=== PATIENT | female | born 1960 | race Caucasian/White ===

== ENCOUNTER → 2019-05-29 | Outpatient (CLI) | payer OTHER ==
--- NOTE | 2019-05-29 15:44 | REPMRS ---
Patient History The patient states she had a clinical breast exam in 2019. No known family history of cancer. Digital Woman Screen Mammo: May 29, 2019 - Exam #: [id number] Bilateral CC and MLO view(s) were taken. Technologist: Lucy Pennington, Technologist Prior study comparison: March 04, 2015, digital woman screen mammo performed at [facility]. October 17, 2013, digital woman screen mammo performed at [facility]. September 11, 2012, digital woman screen mammo performed at [facility]. FINDINGS: There are scattered fibroglandular densities. There are stable nodular opacities in the left breast medially. There has been no change in the appearance of the mammogram from the prior studies. There is a mild amount of scattered fibroglandular density which is fairly symmetric. There is no interval development of dominant mass, architectural distortion, or grouped microcalcification suggestive of malignancy. 3-D tomosynthesis shows no additional findings. Assessment: BI-RADS/ACR category 2 mammogram. Benign Findings. Recommendation Routine screening mammogram of both breasts in 1 year (for women over age 40). This patient's Lifetime Breast Cancer Risk is estimated at 6.3 %. This mammogram was interpreted with the aid of an FDA-approved computer-aided dectection system. Electronically Signed By: Jordan Vale MD 05/29/19 [id number]
== END ==
LOC: M WHC 13:47
PROVIDERS: ATTEND Nurse Practitioner Women's Health
DX: Z12.31 Encounter for screening mammogram for malignant neoplasm of breast (principal)

== ENCOUNTER → 2020-06-18 | Outpatient (CLI) | payer OTHER ==
--- NOTE | 2020-06-18 11:25 | REPMRS ---
Patient History The patient states she had a clinical breast exam in June 2020. No known family history of cancer. Digital Woman Screen Mammo: June 18, 2020 - Exam #: [id number] Bilateral CC and MLO view(s) were taken. Technologist: Liz Meeks, Technologist Prior study comparison: May 29, 2019, bilateral digital woman screen mammo performed at [facility]. March 04, 2015, digital woman screen mammo performed at [facility]. October 17, 2013, digital woman screen mammo performed at [facility]. FINDINGS: There are scattered fibroglandular densities. The Volpara volumetric breast density category is:B. There is a 6 mm nodule in the upper outer quadrant of the right breast which merits further evaluation. There has been no other change in the appearance of the mammogram from the prior studies. There is a mild amount of scattered fibroglandular density which is fairly symmetric. There is no other interval development of dominant mass, architectural distortion, or grouped microcalcification suggestive of malignancy. 3-D tomosynthesis shows no additional findings. Assessment: BI-RADS/ACR category 0 mammogram, Incomplete: Need additional imaging evaluation and/or prior mammograms for comparison. Recommendation Ultrasound and special view mammogram of the right breast. This patient's [facility] Lifetime Breast Cancer Risk is estimated at 6.1 %. This mammogram was interpreted with the aid of an FDA-approved computer-aided dectection system. Electronically Signed By: Jordan Vale MD 06/18/20 [id number]
== END ==
LOC: M WHC 09:12
PROVIDERS: ATTEND Nurse Practitioner Women's Health
DX: Z12.31 Encounter for screening mammogram for malignant neoplasm of breast (principal); N63.11 Unspecified lump in the right breast, upper outer quadrant

== ENCOUNTER → 2020-07-02 | Outpatient (CLI) | payer OTHER ==
--- NOTE | 2020-07-02 14:35 | REP ---
INDICATION: ADDL VIEWS RIGHT BREAST/NODULE; RIGHT BREAST NODULE. COMPARISON: 06/18/2020 as well as other prior exams. TECHNIQUE: Spot compression views right breast performed as well as targeted right breast ultrasound. FINDINGS: Spot compression views show a 5 mm smoothly marginated oval nodule in the outer right breast. It is in the mid 3rd of the breast. Real-time sonographic evaluation of the outer right breast is performed. No cystic or solid nodule is seen sonographically. IMPRESSION: BIRADS/ACR category 4A, new finding with low likelihood of being cancer. There is a new oval smoothly marginated 5 mm nodule in the outer right breast with no sonographic correlate. My suspicion for malignancy is low. Recommend stereotactic biopsy. Alternatively, if the patient does not wish to undergo biopsy, a six-month follow-up mammogram of the right breast could be performed to ensure stability. This mammogram was interpreted with the aid of an FDA-approved computer-aided detection system. The patient letter being requested is M4. RECOMMENDATION: Recommend stereotactic biopsy right breast. Alternatively, if the patient does not wish to undergo biopsy, a six-month follow-up mammogram of the right breast could be performed to ensure stability. <Electronically signed by Elias Robertson > 07/02/20 [id number]
== END ==
LOC: M WHC 12:47
PROVIDERS: ATTEND Nurse Practitioner Women's Health
DX: N63.15 Unspecified lump in the right breast, overlapping quadrants (principal)

== ENCOUNTER → 2020-07-07 | Outpatient (CLI) | payer OTHER ==
[~2020-07-07] MED LIST: ASPI81CH33 PO; GLUC500T53 PO; PANT40TA29 PO; SIMV10TA21 PO
[2020-07-07 09:05] VITALS: BP 120/80
--- NOTE | 2020-07-07 09:42 | REP ---
INDICATION: R92.8 ABN MAMMO RT BREAST,POST STEREOTACTIC BIOPSY. COMPARISON: 07/02/2020. TECHNIQUE: ML and CC views right breast performed following stereotactic biopsy of a nodule in the upper outer quadrant. FINDINGS: Biopsy clip is well aligned with the nodule in the CC projection. In the mL projection, the clip appears to be deployed proximally 1-1.5 cm superior to the nodule. IMPRESSION: Biopsy clip deployed, as discussed above, following stereotactic biopsy of a nodule in the upper outer quadrant of the right breast. RECOMMENDATION: Clinical follow-up. <Electronically signed by Elias Robertson > 07/07/20 0938
--- NOTE | 2020-07-07 10:05 | REP ---
INDICATION: R92.8 ABN MAMMO RT BREAST,STEREOTACTIC BIOPSY. COMPARISON: None. TECHNIQUE: This procedure is performed by Rebekah Cavazos [facility], under the direct supervision of Dr. Robertson. The risks and benefits of the procedure were explained to the patient and informed consent was obtained both verbally and written. Directly prior to the start of the procedure, a formal timeout was done in the procedure room. The cranial caudal approach was utilized on the prone table. The right breast nodule was localized using mammographic guidance. The skin was prepped and draped in a sterile fashion. Five ml of buffered lidocaine was used as a local anesthetic. FINDINGS: A 10 gauge vacuum assisted mammotome biopsy device was inserted and advanced into the breast lesion and 6 core biopsy samples were obtained. A marker clip was placed at the biopsy site. The patient tolerated the procedure well and there were no immediate complications. After the appropriate amount of monitored convalescence the patient was discharged from the department. IMPRESSION: Stereotactic guided right breast biopsy with micro clip placement. <Electronically signed by Rebekah Cavazos > 07/07/20 0931 <Electronically signed by Elias Robertson > 07/07/20 1002
== END ==
LOC: M WHCPRO 06:33
PROVIDERS: ATTEND Nurse Practitioner Women's Health
DX: N60.11 Diffuse cystic mastopathy of right breast (principal)

== ENCOUNTER → 2021-08-18 | Outpatient (CLI) | payer OTHER | LOC: M WHC 11:27 | PROVIDERS: ATTEND Specialist | DX: Z12.31 Encounter for screening mammogram for malignant neoplasm of breast (principal) ==

== ENCOUNTER → 2021-10-14 | Outpatient (CLI) | payer OTHER | LOC: M LABSMTC 09:45 | PROVIDERS: ATTEND Anesthesiology | DX: Z01.812 Encounter for preprocedural laboratory examination (principal); Z11.52 Encounter for screening for COVID-19 ==

== ENCOUNTER 2021-10-19 06:51 | Day surgery (SDC) | payer OTHER ==
[~2021-10-19] VITALS: Ht 167.6 cm; Wt 93.9 kg
[~2021-10-19 06:51] MED LIST changes: +ATOR1TAB19 PO; +D200CAP3 PO; +METO1TAB87 PO; +NS 1,000 ML IV ONE
[2021-10-19] MEDS ORDERED: propofoL 200 MG/20 ML VIAL As Ordered ONE (08:01)
[2021-10-19 08:45] VITALS: BP 170/79
== END 2021-10-19 08:55 | disposition home or self-care (01) ==
LOC: M OPP 06:51
PROVIDERS: ATTEND Internal Medicine Gastroenterology
DX: R19.5 Other fecal abnormalities (principal); D12.6 Benign neoplasm of colon, unspecified; K64.0 First degree hemorrhoids; K57.30 Diverticulosis of large intestine without perforation or abscess without bleeding; E78.5 Hyperlipidemia, unspecified; I45.6 Pre-excitation syndrome; Z87.891 Personal history of nicotine dependence; Z88.0 Allergy status to penicillin; Z79.82 Long term (current) use of aspirin; Z79.899 Other long term (current) drug therapy

== ENCOUNTER → 2022-08-23 | Outpatient (REF) | payer OTHER ==
[~2022-08-23] MED LIST changes: -NS 1,000 ML IV ONE
== END ==
LOC: M SFHCWAGY 13:20
PROVIDERS: ATTEND Specialist
DX: Z12.4 Encounter for screening for malignant neoplasm of cervix (principal)
CPT/HCPCS: 87624; G0123

== ENCOUNTER → 2022-08-23 | Outpatient (REF) | payer OTHER | LOC: M WHC 08:00 → EDSTATUS 10:30 | PROVIDERS: ATTEND Specialist | DX: Z12.31 Encounter for screening mammogram for malignant neoplasm of breast (principal) ==

== ENCOUNTER → 2024-01-01 | Outpatient (REF) | payer MEDICARE, OTHER | LOC: M SFHCWAGY 12:32 | PROVIDERS: ATTEND Specialist | DX: Z12.4 Encounter for screening for malignant neoplasm of cervix (principal) ==

== ENCOUNTER → 2024-01-01 | Outpatient (CLI) | payer MEDICARE, OTHER | LOC: M WHC 10:11 | PROVIDERS: ATTEND Specialist | DX: Z12.31 Encounter for screening mammogram for malignant neoplasm of breast (principal) ==